=== PATIENT | female | born 1995 | race Two or more races ===

== ENCOUNTER 2024-08-06 16:11 | Emergency (ER) | payer MEDICAID, SELFPAY ==
[2024-08-06 16:57] VITALS: BP 134/83; PULSE 81; RESP 18; TEMP 37.5; O2SAT 96; BMI 29.2
--- NOTE | 2024-08-06 17:14 | XR_ITS ---
Examination: Pelvic ultrasound, transabdominal, complete Technique: Transabdominal ultrasound of the pelvis performed using grayscale imaging Date and time of exam: August 06, 2024 1838 hrs. Indications: Irregular vaginal bleeding and pelvic cramping beginning one week ago Findings: Uterus 6.0 x 5.2 x 6.3 cm Endometrial stripe 0.6 cm No uterine mass or intrauterine gestation Right ovary 2.6 x 2.2 x 2.0 cm arterial flow Left ovary obscured by bowel gas Impression: No uterine mass or intrauterine gestation
--- NOTE | 2024-08-06 17:14 | PD.EDRME ---
Rapid Medical Screening Exam RME Arrival date/time: 08/06/24 16:11 28-year-old female presents to the emergency department today complains of pelvic pain vaginal spotting Chief Complaint: Abdominal Pain Time Seen by Provider: 08/06/24 16:46 Vital signs: Vital Signs Temperature 99.5 F 08/06/24 16:57 Pulse Rate 81 08/06/24 16:57 Respiratory Rate 18 08/06/24 16:57 Blood Pressure 134/83 H 08/06/24 16:57 Pulse Oximetry (%) 96 08/06/24 16:57 Oxygen Delivery Method Room Air 08/06/24 16:57
[2024-08-06 18:21] LABS: Collection Type, Urine Clean Catch
[2024-08-06 18:24] LABS: Basophils % (Auto) 0 % (0-2.5); Eosinophils % (Auto) 1 % (0-10); Hematocrit 42.3 % (36.0-46.0); Immature Granulocytes % (Auto) 0 % (0-0); Immature Granulocytes Auto 0.01 Thou/mm3 (0.00-0.00); Lymphocytes # (Auto) 1.4 Thou/mm3 (1.0-4.8); Lymphocytes % (Auto) 19 % (10-50); Mean Corpuscular HGB Conc 33.1 g/dl (31.0-37.0); Mean Corpuscular Hemoglobin 31.6 pg (25.0-35.0); Mean Corpuscular Volume 96 fL (80-100); Monocytes # (Auto) 0.5 Thou/mm3 (0.0-0.8); Monocytes % (Auto) 7 % (0-12); Neutrophils # (Auto) 5.3 Thou/mm3 (1.8-7.7); Neutrophils % (Auto) 73 % (37-80); Nucleated Red Blood Cell % 0 /100 WBC (0); Platelet Count 287 Thou/mm3 (140-440); RDW Standard Deviation 42.3 fL (36.4-46.3); Red Blood Count 4.43 Miln/mm3 (4.00-5.20); White Blood Count 7.3 Thou/mm3 (3.6-11.0)
[2024-08-06 18:27] LABS: Alanine Aminotransferase 23 U/L (10-49); Albumin, Serum 4.9 gm/dL (3.5-5.0); Albumin/Globulin Ratio 1.6 (1.2-2.2); Alkaline Phosphatase 65 U/L (46-116); Anion Gap 9 (7-16); Aspartate Amino Transferase 18 U/L (0-34); BUN/Creatinine Ratio 11 Ratio (12-20); Bilirubin,Total 0.4 mg/dL (0.3-1.2); Blood Urea Nitrogen 9 mg/dL (9-23); Calcium 10.1 mg/dL (8.3-10.6); Calcium (Corrected) 10.1 mg/dL (8.5-10.1); Carbon Dioxide 25.4 mMol/L (20.0-31.0); Chloride 104 mMol/L (98-107); Creatinine (Component) 0.8 mg/dL (0.6-1.3); Estimated Creatinine Clearance 93.9 mL/min (>60); Glucose 89 mg/dL (74-106); Osmolality,Calculated 273 (275-295); Potassium 4.1 mMol/L (3.4-5.1); Sodium 138 mMol/L (136-145); Total Protein 7.9 gm/dL (5.7-8.2); eGFR > 60 See Note
[2024-08-06 18:36] LABS: Bacteria,Urine Rare; Bilirubin,Urine Negative (Negative); Blood,Urine 3+ (Negative); Clarity,Urine Turbid (Clear/Hazy); Color,Urine Yellow (Lt Yel-Yel); Glucose, Urine Negative (Negative); Ketones,Urine Negative (Negative); Leukocyte Esterase,Urine Positive (Negative); Nitrite,Urine Negative (Negative); Protein,Urine Trace (Neg - Trace); RBC,Urine 1 /hpf (0-3); Specific Gravity,Urine 1.028 (1.001-1.035); Squamous Epithelial Cell,Urine 7 /hpf (0-5); Urobilinogen,Urine Negative mg/dL (0.0-1.0); WBC,Urine 13 /hpf (0-5)
[2024-08-06 18:37] LABS: HCG Qualitative,Urine Negative
[2024-08-06 18:39] LABS: Culture Indicated,Urine Yes
[2024-08-06 21:27] VITALS: BP 117/79; PULSE 84; RESP 16; TEMP 37.2; O2SAT 97
--- NOTE | 2024-08-06 21:47 | PD.EDABDPN ---
ED Abdominal Pain RME/HPI General Chief Complaint: Abdominal Pain Stated complaint: SEVERE CRAMPING, SPOTTING, NAUSEA Time seen by provider: 08/06/24 16:46 Arrival date/time: 08/06/24 16:11 RME / HPI RME / HPI narrative: 08/06/24 16:11 28-year-old female presents to the emergency department today complains of pelvic pain vaginal spotting LLQ abd pain x 1 day. Hurts to walk and urinate. LMP: 3 weeks. Related Data Previous Rx's ?Medication ?Instructions ?Recorded lorazepam 0.5 mg tablet 0.5 mg PO BID #6 tabs 10/13/16 Allergies Allergy/AdvReac Type Severity Reaction Status Date / Time NKA* Allergy Uncoded 08/06/24 16:14 Course Orders Category Date Time Status US pelvic complete Stat Exams 08/06/24 17:14 Completed CBC Stat Lab 08/06/24 17:59 Completed Comprehensive Metabolic Panel Stat Lab 08/06/24 17:59 Completed HCG Qualitative,Urine Stat Lab 08/06/24 18:00 Completed UA, C/S IF [Urinalysis, C/S if Indicated] Stat Lab 08/06/24 18:00 Completed Urine Culture Stat Lab 08/06/24 18:00 Received Vital Signs Vital signs: Vital Signs Temperature 99.5 F 08/06/24 16:57 Pulse Rate 81 08/06/24 16:57 Respiratory Rate 18 08/06/24 16:57 Blood Pressure 134/83 H 08/06/24 16:57 Pulse Oximetry (%) 96 08/06/24 16:57 Oxygen Delivery Method Room Air 08/06/24 16:57 Discharge Plan Prescriptions/Referrals Prescriptions/Med Rec: No Action lorazepam 0.5 MG tablet 0.5 mg PO BID Qty: 6 0RF Patient/Caregiver Discharge Instructions Print Language: Turkmen
--- NOTE | 2024-08-06 21:51 | PD.EDFMALE ---
ED Female Urogenital RME/HPI General Chief complaint: Abdominal Pain Stated complaint: SEVERE CRAMPING, SPOTTING, NAUSEA Time Seen by Provider: 08/06/24 16:46 Arrival date/time: 08/06/24 16:11 28F with history of anxiety presents to ED with pelvic pain and irregular period for 1 week. Patient denies dysuria. Limitations: no limitations RME / HPI RME / HPI Narrative: 08/06/24 16:11 28-year-old female presents to the emergency department today complains of pelvic pain vaginal spotting LLQ abd pain x 1 day. Hurts to walk and urinate. LMP: 3 weeks. Related Data Previous Rx's ?Medication ?Instructions ?Recorded lorazepam 0.5 mg tablet 0.5 mg PO BID #6 tabs 10/13/16 Allergies Allergy/AdvReac Type Severity Reaction Status Date / Time NKA* Allergy Uncoded 08/06/24 16:14 Review of Systems Review of Systems Systems Reviewed: All systems reviewed, normal except as documented Constitutional Constitutional: Reports system reviewed and no additional complaints, except as documented, Denies fever(s) and Denies headache(s) ENT Ears, Nose, Mouth, and Throat: Denies disequilibrium and Denies headache(s) Cardiovascular Cardiovascular: Reports system reviewed and no additional complaints, except as documented, Denies chest pain and Denies dyspnea Respiratory Respiratory: Reports system reviewed and no additional complaints, except as documented, Denies cough and Denies dyspnea Gastrointestinal Gastrointestinal: Reports system reviewed and no additional complaints, except as documented, Denies abdominal pain, Denies nausea and Denies vomiting Genitourinary Genitourinary: Reports as per HPI, Reports abnormal vaginal bleeding and Reports pelvic pain Neurologic Neurologic: Reports system reviewed and no additional complaints, except as documented, Denies confusion, Denies disequilibrium and Denies headache(s) Psychiatric Psychiatric: Denies confusion Past Medical History Social History SMOKING STATUS: Never smoker ED Exam General Limitations: Present no limitations General appearance: Present alert and in no apparent distress Head Head exam: Present atraumatic Eye Eye exam: Present normal appearance, PERRL and EOMI ENT ENT exam: Present normal exam, normal oropharynx and mucous membranes moist Neck Neck exam: Present normal inspection, full ROM and trachea midline Chest Chest inspection: Present normal inspection and symmetric chest wall rise Respiratory Respiratory exam: Present normal lung sounds bilaterally Cardiovascular Cardiovascular exam: Present regular rate, normal rhythm and normal heart sounds Abdominal Exam Abdominal exam: Present soft and normal bowel sounds Extremities Exam Extremities exam: Present normal inspection and full ROM Back Exam Back exam: Present normal inspection and full ROM Neurological Exam Neurological exam: Present alert, oriented X3 and CN II-XII intact Psychiatric Psychiatric exam: Present normal affect and normal mood Skin Skin exam: Present warm, dry, intact and normal color Course Quality Measures none Orders Category Date Time Status US pelvic complete Stat Exams 08/06/24 17:14 Completed CBC Stat Lab 08/06/24 17:59 Completed Comprehensive Metabolic Panel Stat Lab 08/06/24 17:59 Completed HCG Qualitative,Urine Stat Lab 08/06/24 18:00 Completed UA, C/S IF [Urinalysis, C/S if Indicated] Stat Lab 08/06/24 18:00 Completed Urine Culture Stat Lab 08/06/24 18:00 Received Vital Signs Vital signs: Vital Signs Temperature 99.5 F 08/06/24 16:57 Pulse Rate 81 08/06/24 16:57 Respiratory Rate 18 08/06/24 16:57 Blood Pressure 134/83 H 08/06/24 16:57 Pulse Oximetry (%) 96 08/06/24 16:57 Oxygen Delivery Method Room Air 08/06/24 16:57 O2 at 96% on RA and WNLs Urogenital - Female MDM Narrative MDM Narrative:: 28F with history of anxiety presents to ED with pelvic pain and irregular period for 1 week. Patient denies dysuria. Physical exam reveals no pelvic tenderness. Patient is afebrile, calm, and alert. US normal. No leukocytosis or anemia. HCG neg. CMP unremarkable. Predictive Maintenance Technician given. Patient data External records reviewed:: [facility] previous records Clinical information provided by:: patient Social determinants that could affect healthcare access:: mental health Patient has the following chronic illnesses:: anxiety How is presenting disease/condition affected by chronic disease/condition?: exacerbated by Evaluation data The following diagnostics were reviewed and interpreted by me:: lab results and radiology exam(s) Lab and/or radiology exams considered but not ordered:: ordered Interpretation Summary: above Medications / Prescriptions Medications or Prescriptions considered but not ordered:: not ordered Medication administrations:: n/a Consultations Consultation(s) initiated? (list below): No Diagnosis Urogenital Female Differential Diagnosis: urinary tract infection, bacterial vaginosis, trichomoniasis, cervicitis, ovarian cyst, vaginitis, ruptured ovarian cyst, cyst of Bartholin's gland, cystitis, dysmenorrhea and other (irregular periods) Most likely diagnosis given after review of the tests above:: irregular periods Admission Indicated Admission indicated?: not indicated Admission Request Was there a request for admission?: No Disposition Plan Disposition Plan: Discharge Discharge Attestation Discharge Attestation: The patient and all family members were given an opportunity to ask questions and understood the discharge instructions. Discharge instructions specifically effects, indications for sooner follow up or return to the emergency department, and the expected course of current diagnosis. Patient condition: Stable Discharge Plan Plan Patient Disposition: HOME (Self Care) Disposition Comment: Stable Prescriptions/Referrals Prescriptions/Med Rec: No Action lorazepam 0.5 MG tablet 0.5 mg PO BID Qty: 6 0RF Problem List Clinical Impression: Irregular periods Patient/Caregiver Discharge Instructions Education Materials: ED Dysfunctional Uterine Bleeding Additional Instructions: Please follow-up with PCP/OBYGN within 24-48 hours and return immediately if symptoms worsen. Print Language: Panamanian Stand Alone Forms: Patient Portal Info Letter THOM/LIBERTY Supervising Physician ROLLY Supervising Physician: Dr. Moreno
== END 2024-08-06 21:55 | disposition home or self-care (01) ==
LOC: SERX 22:01
PROVIDERS: Nurse Practitioner Primary Care; Emergency Provider Emergency Medicine
DX: N92.6 Irregular menstruation, unspecified (principal)
CPT/HCPCS: 36415; 76856; 80053; 81001; 81025; 85025; 87086; 99284